=== PATIENT | female | born 1985 | race Caucasian/White ===

== ENCOUNTER 2024-01-31 00:01 | Emergency (ER) | payer OTHER, SELFPAY ==
[2024-01-31 00:04] VITALS: BP 161/98
--- NOTE | 2024-01-31 00:16 | ED.GENMED ---
History of Present Illness
<TRUPTI Jiménez - Last Filed: 01/31/24 01:52>
General
Chief Complaint: Extremity Pain (non-traumatic)
Source: patient and significant other
Time Seen by Provider: 01/31/24 00:16
Nursing documentation reviewed up to this point in time: agreed with
History of Present Illness
History of Present Illness:
38 year old female presents for evaluation of right lower extremity pain. Pt endorses a four-month history of intermittent right buttock, knee, and foot pain. She endorses a [place] and fall at the playground several months ago, but is unsure if this
triggered her symptoms. Pt was seen at urgent care one month ago and was given a home stretching regimen which provided short-term pain relief. However, pt's symptoms have worsened over the last 2 days, prompting ED arrival. She was evaluated by her
family doctor yesterday and was given a prescription for gabapentin which provided no symptom relief. Pain is worse with ambulation. Pt currently endorses 7/10 throbbing pain in her right gastrocnemius/Achilles area, as well as with R ankle
movement. She also endorses R low back/buttock pain. She endorses intermittent numbness/tingling in her R foot as well which she describes as a ' leg.'
Past History
<TRUPTI Jiménez - Last Filed: 01/31/24 01:52>
Past History
ED Past Medical History: None
ED Past Surgical History: None
Social History
Tobacco: Non-smoker
Living: with family
Employment: Employed
Review of Systems
<TRUPTI Jiménez - Last Filed: 01/31/24 01:52>
Review of Systems
Allergies reviewed?: Yes
Constitutional: Reports no symptoms
EENT: Reports no symptoms
Respiratory: Reports no symptoms
Cardiac: Reports no symptoms
ABD/GI: Reports no symptoms
: Reports no symptoms
Musculoskeletal: Reports joint pain, muscle pain and back pain
Skin: Reports no symptoms
Neurological: Reports numbness (right foot )
Endocrine: Reports no symptoms
Hematologic/Lymphatic: Reports no symptoms
Psychiatric: Reports no symptoms
Phy Exam
<TRUPTI Jiménez - Last Filed: 01/31/24 01:52>
General Physical Exam
General Presentation: well appearing
General age: appears stated age
General Skin: warm
General Habitus: normal
General Mental: alert
General Hydration: appears well hydrated
Cardiovascular Exam
Cardiovascular Exam: regular rate/rhythm, no edema and no murmur
Pulmonary Exam
Pulmonary Exam: lungs clear and no respiratory distress
Musculoskeletal Exam
Musculoskeletal Exam: neuro vasc intact and other (pain with R ankle inversion, eversion, dorsiflexion, and plantar flexion. No bony tenderness of R ankle or R knee. Positive R straight leg raise )
Skin Exam
Skin Exam: normal color
Course
<TRUPTI Jiménez - Last Filed: 01/31/24 01:52>
Orders/Labs/Results
Orders:
Orders
01/31/24 01:06
Diazepam [Valium] 5 mg PO NOW STA
Ketorolac [Toradol] 30 mg IM NOW STA
Vital Signs
Initial and Last Documented VS:
Initial Vital Signs
Temp Pulse Resp BP Pulse Ox
99.0 F 104 18 161/98 97
01/31/24 00:04 01/31/24 00:04 01/31/24 00:04 01/31/24 00:04 01/31/24 00:04
Last Documented Vital Signs
Temp Pulse Resp BP Pulse Ox
99.0 F 104 18 161/98 97
01/31/24 00:04 01/31/24 00:04 01/31/24 00:04 01/31/24 00:04 01/31/24 00:04
<Rodney Fuentes DO - Last Filed: 01/31/24 01:51>
Orders/Labs/Results
Orders:
Orders
01/31/24 01:06
Diazepam [Valium] 5 mg PO NOW STA
Ketorolac [Toradol] 30 mg IM NOW STA
Vital Signs
Initial and Last Documented VS:
Initial Vital Signs
Temp Pulse Resp BP Pulse Ox
99.0 F 104 18 161/98 97
01/31/24 00:04 01/31/24 00:04 01/31/24 00:04 01/31/24 00:04 01/31/24 00:04
Last Documented Vital Signs
Temp Pulse Resp BP Pulse Ox
99.0 F 104 18 161/98 97
01/31/24 00:04 01/31/24 00:04 01/31/24 00:04 01/31/24 00:04 01/31/24 00:04
<TRUPTI Jiménez - Last Filed: 01/31/24 01:52>
MDM/Problems Addressed
Differential Diagnosis Includes:
sciatica, herniated lumbar disc
<Rodney Fuentes DO - Last Filed: 01/31/24 01:51>
*Critical Care Note
Total Time (30-74mins, 75-104mins- exclusive of procedures): Not Applicable
<TRUPTI Jiménez - Last Filed: 01/31/24 01:52>
Update Note
Update Note:
0145 - pt reports moderate pain relief after receiving Valium and Toradol
ED Attending Note
<TRUPTI Jiménez - Last Filed: 01/31/24 01:52>
-
Portions of this chart may have been created with voice recognition software.� Occasional wrong word or��sound alike� substitutions may have occurred due to the inherent limitations of voice recognition software.
<Rodney Fuentes, DO - Last Filed: 01/31/24 01:51>
ED Attending Note
Patient seen and examined by attending physician: Yes
I performed the substantive portion of visit, reviewed & personally made and approve the management plan that is documented in note by myself or KEE.: Yes
ED Attending Note:
Pleasant 38-year-old female presents with right leg pain. She states that this has been on for 4 months. She has been seen by her primary care provider as well as urgent care. She was started on gabapentin and had an ultrasound to rule out a DVT
today. Patient states that tonight the pain was throbbing and the gabapentin did not work. Patient denies bowel or bladder retention or incontinence. Denies saddle anesthesia. States that she has some numbness down her leg but it is
intermittent. Denies fever, chills, nausea or vomiting. Patient does state that she had a fall several months ago but is unsure if this caused her symptoms. Patient was seen in conjunction with the PA student. I have reviewed and agree with the
history and treatment plan presented. On my independent physical exam, patient is awake, alert, and oriented x3, minimal to moderate acute distress relieved with ice. Full range of motion of the right lower extremity. Good distal pulses. No
obvious swelling. Skin is warm dry and intact. Positive straight leg raising test at 20 degrees with dorsiflexion on the right. She states that this replicates her symptoms. Plan is to try Valium and Toradol. She will follow-up with orthopedics.
Discharge Plan
Departure
Patient Disposition: Home (Routine Discharge)
Date of Disposition: 01/31/24
Time of Disposition: 01:47
Patient with high blood pressure during this ER visit?: Yes
Discharge Problem:
Sciatica, Lower extremity pain
Instructions: Sciatica (DC), Muscle and Bone Pain (DC)
Prescriptions:
New
diclofenac sodium 75 mg tablet,delayed release (DR/EC)
75 mg PO BID Qty: 10 0RF
cyclobenzaprine 10 mg tablet
10 mg PO BID PRN (Reason: muscle spasm) Qty: 10 0RF
No Action
dextroamphetamine-amphetamine 10 MG tablet
10 mg PO BID
PNV cmb#95-ferrous fumarate-FA [] 1 EACH tablet
1 ea PO DAILY
acetaminophen 325 MG tablet
650 mg PO Q4HPRN PRN (Reason: mild pain) 0RF
ibuprofen 600 MG tablet
600 mg PO Q4HPRN PRN (Reason: moderate pain/cramps) 0RF
Referrals:
Gabi Eldridge CRNP [Family Provider] -
María Prasad DO [Active] - Call in 1-3 days for appt
Activity Restrictions/Additional Instructions:
Your prescriptions were sent electronically to the pharmacy that you specified.
It was a pleasure meeting you and taking part in your care. We hope for your continued healing and wellness.
Please read discharge instructions in their entirety. However, they are for general education and may not describe your exact diagnosis at discharge. Information on your ER visit and medical conditions were discussed with you along with appropriate
follow up information...
If indicated, please take your medications as instructed and indicated on discharge paperwork.
Please schedule a follow up appointment as directed. Call to schedule an appointment
Please return to the emergency department with ANY change in, persisting, or worsening of symptoms. If any of your symptoms do not improve, or persist, or become more severe within 6-12 hours, please return to the emergency department for further
care.
Please return to the emergency department if you develop a headache, neck pain/stiffness, fever greater than 100.4F, chest pain, shortness of breath, persistent nausea, vomiting, slurred speech, difficulty walking, numbness/tingling, weakness, signs
of infection or any other symptoms that are worrisome to you.
If you have any questions or concerns please do not hesitate to call the Hospital at or E-mail me directly at [email or web address]
Interventions
Interventions:
*Risk Screen - Suicide Last Done: 01/31/24 00:04
*General Assessment Last Done: 01/31/24 00:04
*Neglect/Abuse Screening Last Done: 01/31/24 00:04
ED- Fall Risk Assessment Last Done: 01/31/24 00:04
*ED COVID-19 Vaccine History Last Done: 01/31/24 00:04
ED-Skin Assessment Last Done: 01/31/24 00:25
ED-Peripheral Vascular Assessment Last Done: 01/31/24 00:25
ED-Musculoskeletal Assessment Last Done: 01/31/24 00:25
Discharge Date and Time
Print Language: WOLOF
[2024-01-31] MEDS: TORADOL 30 MG IM (01:30)
[2024-01-31] MEDS: VALIUM 5 MG PO (01:30)
[2024-01-31 02:15] VITALS: BP 134/67
== END 2024-01-31 02:15 | disposition home or self-care (01) ==
LOC: EMR 00:01
PROVIDERS: EMERGENCY PHYSICIAN Student in an Organized Health Care Education/Training Program; FAMILY PHYSICIAN Nurse Practitioner Family
DX: M54.31 Sciatica, right side (principal); M79.604 Pain in right leg
CPT/HCPCS: 99284; 96372